=== PATIENT | female | born 1960 | race African-American/Black ===

== ENCOUNTER 2021-12-10 17:12 | Outpatient (CLI) | payer OTHER | END 2021-12-10 17:13 | disposition home or self-care (01) | LOC: LABBT 17:12 | PROVIDERS: ATTEND Ophthalmology Retina Specialist | DX: Z20.822 Contact with and (suspected) exposure to COVID-19 (principal) | CPT/HCPCS: 87811 ==

== ENCOUNTER 2021-12-12 07:50 | Day surgery (SDC) | payer OTHER ==
[2021-12-11 11:38] VITALS: BMI 22.4
[2021-12-12] MEDS ORDERED: Cyclopentolate 1% Opth Drop 2 ML BOT ONE (08:28)
[2021-12-12] MEDS ORDERED: Phenylephrine 2.5% Ophth Soln 5 ML BOT ONE (08:28)
[2021-12-12] MEDS ORDERED: Fluorouracil 100 MG, EPINEPHrine 0.3 MG in Ophthalmic Irrigation Solution 500 ML IRR SCH (08:45)
[2021-12-12] MEDS ORDERED: Midazolam HCl 2 mg/2 ml Vial ONE (10:15)
[2021-12-12] MEDS ORDERED: Fentanyl 100 MCG/2 ML VIAL ONE (10:15)
[2021-12-12] MEDS ORDERED: CEFAZOLIN 1 GM VIAL ONE (10:27)
[2021-12-12] MEDS ORDERED: Lidocaine 4% PF 5 ML AMP ONE (10:27)
[2021-12-12] MEDS ORDERED: Triamcinolone 40 MG/ML VIAL ONE (10:27)
[2021-12-12] MEDS ORDERED: Maxitrol 0.1% Opth Oint 3.5 GM TUBE ONE (10:27)
[2021-12-12] MEDS ORDERED: Bupivacaine 0.75% 10 ML VIAL ONE (10:27)
[2021-12-12] MEDS ORDERED: PROPOFOL 200 MG/20 ML VIAL ONE (10:27)
[2021-12-12] MEDS ORDERED: Lidocaine 1% MPF 2 ML VIAL ONE (10:27)
== END 2021-12-12 11:45 | disposition home or self-care (01) ==
LOC: SDC 07:50
PROVIDERS: ATTEND Ophthalmology Retina Specialist
PROC: 08T53ZZ Resection of Left Vitreous, Percutaneous Approach (ICD-10-PCS; principal; 2021-12-12)
PROC: 08QF3ZZ Repair Left Retina, Percutaneous Approach (ICD-10-PCS; principal; 2021-12-12)
DX: H33.42 Traction detachment of retina, left eye (principal); H43.12 Vitreous hemorrhage, left eye; E11.9 Type 2 diabetes mellitus without complications; Z79.4 Long term (current) use of insulin; Z79.899 Other long term (current) drug therapy; Z88.2 Allergy status to sulfonamides; Z88.5 Allergy status to narcotic agent; Z88.8 Allergy status to other drugs, medicaments and biological substances; Z91.040 Latex allergy status
CPT/HCPCS: J0171; J0690; J2250; J2704; J3010; J3301; J3490; J9190

== ENCOUNTER 2022-01-30 06:19 | Day surgery (SDC) | payer OTHER ==
[2022-01-29 14:06] VITALS: BMI 22.4
[~2022-01-30 06:19] MED LIST: EPINEPHrine 0.3 MG in Ophthalmic Irrigation Solution 500 ML IRR SCH
[2022-01-30] MEDS ORDERED: Midazolam HCl 2 mg/2 ml Vial ONE (06:39)
[2022-01-30] MEDS ORDERED: fentaNYL PF 100 MCG/2 ML SYRINGE ONE (06:39)
[2022-01-30] MEDS ORDERED: Cyclopentolate 1% Opth Drop 2 ML BOT ONE (07:31)
[2022-01-30] MEDS ORDERED: Phenylephrine 2.5% Ophth Soln 5 ML BOT ONE (07:31)
[2022-01-30] MEDS ORDERED: Lidocaine 1% MPF 2 ML VIAL ONE (07:37)
[2022-01-30] MEDS ORDERED: PROPOFOL 200 MG/20 ML VIAL ONE (08:54)
[2022-01-30] MEDS ORDERED: Maxitrol 0.1% Opth Oint 3.5 GM TUBE ONE (08:54)
[2022-01-30] MEDS ORDERED: Triamcinolone 40 MG/ML VIAL ONE (08:54)
[2022-01-30] MEDS ORDERED: Lidocaine 4% PF 5 ML AMP ONE (08:54)
[2022-01-30] MEDS ORDERED: CEFAZOLIN 1 GM VIAL ONE (08:54)
[2022-01-30] MEDS ORDERED: Lidocaine 1% PF 5 ML VIAL ONE (08:54)
[2022-01-30] MEDS ORDERED: Bupivacaine 0.75% 10 ML VIAL ONE (08:54)
== END 2022-01-30 10:15 | disposition home or self-care (01) ==
LOC: SDC 06:19
PROVIDERS: ATTEND Ophthalmology Retina Specialist
DX: H43.12 Vitreous hemorrhage, left eye (principal); Z79.4 Long term (current) use of insulin; Z88.2 Allergy status to sulfonamides; Z88.5 Allergy status to narcotic agent; Z88.8 Allergy status to other drugs, medicaments and biological substances; Z91.040 Latex allergy status
CPT/HCPCS: J0171; J0690; J2250; J2704; J3301; J3490

== ENCOUNTER 2024-12-25 06:06 | Emergency (ER) | payer OTHER ==
[2024-12-25 06:50] LABS: #Basophils 0.05 10x3/uL (0.0-0.2); #Eosinophils 0.13 10x3/uL (0.0-0.7); #Monocytes 0.28 10x3/uL (0.11-0.59); #Neutrophils 2.79 10x3/uL (1.40-6.50); %Basophils 1.1 % (0.0-1.0); %Eosinophils 2.9 % (0.0-10.0); %Lymphocytes 27.9 % (21.0-51.0); %Monocytes 6.2 % (0.0-10.0); %Neutrophils 61.7 % (42.0-75.0); Hematocrit 30.5 % (36.0-47.0); Hemoglobin 10.1 g/dL (12.0-16.0); Mean Corpuscular Hemoglobin 28.1 pg (27.0-31.0); Mean Corpuscular Volume 85.0 fL (78.0-98.0); Platelet Count 208 10x3/uL (130-400); Red Blood Cell (RBC) Count 3.59 mill/uL (4.20-5.40); White Blood Cell (WBC) Count 4.52 10x3/uL (4.8-10.8)
[2024-12-25 07:10] LABS: ALT (SGPT) 9 U/L (Less than 34); AST (SGOT) 16 U/L (11-34); Albumin 3.5 g/dL (3.1-4.5); Alkaline Phosphatase 102 U/L (40-110); Anion Gap 13 mmol/L (10-20); BUN (Urea Nitrogen) 27 mg/dL (9.8-20.1); Bilirubin, Total 0.3 mg/dL (0.3-1.2); Calc. Creatinine Clearance 0 mL/min (70-130); Calcium 9.1 mg/dL (7.8-10.44); Carbon Dioxide 23 mmol/L (23-31); Chloride 103 mmol/L (98-107); Globulin 3.6 g/dL (2.4-3.5); Glucose 295 mg/dL (80-115); Magnesium 2.0 mg/dL (1.6-2.6); Potassium 4.5 mmol/L (3.5-5.1); Sodium 134 mmol/L (136-145)
[2024-12-25 08:17] LABS: Bacteria/HPF 3+ HPF (None Seen); CAUTI Indications for Culture Fever or rigors; Glucose, Urine (Dipstick) 500 mg/dL (Negative); Leukocyte 500 Leu/uL (Negative); Protein, Urine (Dipstick) 50 mg/dL (Neg-Trace); Specific Gravity, Urine 1.011 (1.002-1.036); WBC/HPF Greater than 50 HPF (0-3); Yeast-Budding 1+ HPF (None Seen)
[2024-12-25 08:20] LABS: Urine Culture Reflex Yes Yes
[2024-12-25] MEDS ORDERED: cefTRIAXone (ROCEPHIN) 1 GM VIAL ONE (08:31)
== END 2024-12-25 09:09 | disposition home or self-care (01) ==
LOC: ERS 06:06
DX: E86.0 Dehydration (principal); N39.0 Urinary tract infection, site not specified; B37.31 Acute candidiasis of vulva and vagina; I12.9 Hypertensive chronic kidney disease with stage 1 through stage 4 chronic kidney disease, or unspecified chronic kidney disease; E10.22 Type 1 diabetes mellitus with diabetic chronic kidney disease; N18.9 Chronic kidney disease, unspecified; Z79.899 Other long term (current) drug therapy
CPT/HCPCS: 71045; 80053; 81001; 82010; 83735; 84484; 85025; 87077; 87086; 93005; 96361; 96365; J0696